=== PATIENT | male | born 1975 | race Caucasian/White ===

== ENCOUNTER 2020-08-03 16:11 | Emergency (ER) | payer OTHER, BC ==
[~2020-08-03] VITALS: Ht 175.3 cm; Wt 74.4 kg
[2020-08-03 16:16] VITALS: BP 135/87
--- NOTE | 2020-08-03 16:20 | NUR ---
PT AMBULATED TO BED 04.
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
[2020-08-03] MEDS ORDERED: HYDROcodone/APAP 5/325 MG 1 TAB TAB PO ONE (16:45)
[2020-08-03] MEDS ORDERED: IBUPROFEN 600 MG TAB PO ONE (16:45)
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
[2020-08-03] MEDS ORDERED: IBUP-2213 PO (18:02)
[2020-08-03] MEDS ORDERED: [UNRECOGNIZED DRUG - CODE] PO (18:02)
[2020-08-03] MEDS ORDERED: ACET-9525 PO (18:02)
--- NOTE | 2020-08-03 18:09 | NUR ---
RADIAL PULSE +3, CAP REFILL <3 SEC BILATERAL UPPER EXTREMITIES
[2020-08-03 18:10] VITALS: BP 135/87
--- NOTE | 2020-08-03 18:10 | NUR ---
Patient discharged with v/s stable. Written and verbal after care instructions about clavicle fracture given and explained. Patient alert, oriented and verbalized understanding of instructions. Ambulatory with steady gait. All questions addressed prior to discharge. ID band removed. Patient advised to follow up with PMD. Rx of acetaminophen, ibuprofen, norco given. Pt understands not to drive with norco medication. Patient educated on indication of medication including possible reaction and side effects. Opportunity to ask questions provided and answered.
== END 2020-08-03 18:10 | disposition home or self-care (01) ==
LOC: MED 16:11
DX: S42.032A Displaced fracture of lateral end of left clavicle, initial encounter for closed fracture (principal); S20.211A Contusion of right front wall of thorax, initial encounter; V86.96XA Unspecified occupant of dirt bike or motor/cross bike injured in nontraffic accident, initial encounter; Y93.89 Activity, other specified; Y92.89 Other specified places as the place of occurrence of the external cause; Y99.8 Other external cause status
CPT/HCPCS: 71046; 73030; 99284